=== PATIENT | female | born 1960 | race Two or more races ===

== ENCOUNTER 2017-12-04 17:43 | Emergency (ER) | payer OTHER ==
[~2017-12-04] VITALS: Ht 160 cm; Wt 65.8 kg
[2017-12-04 18:17] VITALS: Ht 160 cm; Wt 65.8 kg
[2017-12-04 21:07] LABS: UA SPECIFIC GRAVITY >=1.030 (1.005-1.035); microscopic required? YES; urine erythrocyte TRACE (NEGATIVE)
[2017-12-04 21:12] LABS: BASOPHIL % 0.6 % (0-2); PLATELET COUNT 365 x10^3mcL (130-400); RED CELL DISTRIBUTION WIDTH 12.9 % (11.5-14.5)
[2017-12-04 21:20] LABS: ALBUMIN 3.7 g/dL (3.4-5.0); BILIRUBIN TOTAL 0.2 mg/dL (0.20-1.00); CALCIUM 8.8 mg/dL (8.5-10.1); CARBON DIOXIDE 30.1 mmol/L (21-32); CREATININE SERUM 1.1 mg/dL (0.6-1.0)
[2017-12-04 21:29] LABS: POTASSIUM SERUM 2.4 mmol/L (3.5-5.1)
[2017-12-05 02:59] VITALS: BP 132/79
== END 2017-12-05 02:59 | disposition home or self-care (01) ==
LOC: ED 17:43
PROVIDERS: Emergency Medicine Emergency Medical Services
DX: E87.6 Hypokalemia (principal); I10 Essential (primary) hypertension
CPT/HCPCS: J3480; J7030; Q0162